=== PATIENT | female | born 1985 | race Caucasian/White ===

== ENCOUNTER 2017-07-10 10:35 | Emergency (ER) | payer OTHER ==
[~2017-07-10] VITALS: Ht 162.6 cm; Wt 120.2 kg
== END 2017-07-10 11:40 | disposition home or self-care (01) ==
LOC: FSED 10:35
DX: R10.13 Epigastric pain (principal); R11.2 Nausea with vomiting, unspecified; R19.7 Diarrhea, unspecified; E86.0 Dehydration; A08.4 Viral intestinal infection, unspecified
CPT/HCPCS: 81025; 99283